=== PATIENT | male | born 1955 | race Caucasian/White ===

== ENCOUNTER 2017-10-19 10:22 | Inpatient (IN) | payer OTHER ==
[2017-10-19] VITALS (11 sets, daily range): BP systolic 122–159; BP diastolic 60–88
[~2017-10-19] VITALS: Ht 175.3 cm; Wt 92.2 kg
[2017-10-19 11:03] LABS: BASOPHIL (%) 0.5 % (0-1); EOSINOPHIL COUNT 0.4 K/uL (0-0.3); HEMATOCRIT 22.2 % (38.0-50.0); HEMOGLOBIN 7.4 G/DL (12.5-16.6); IMMATURE GRANULOCYTE (%) 1.1 % (0.0-0.7); LYMPHOCYTE (%) 16.5 % (15-42); LYMPHOCYTE COUNT 1.4 K/uL (1.0-2.8); MCH 30.6 PG (29.0-34.0); MCHC 33.3 G/DL (30.0-36.0); MCV 91.7 FL (86-99); MONOCYTE (%) 10.2 % (3-12); MONOCYTE COUNT 0.9 K/uL (0-0.8); NEUTROPHIL (%) 66.7 % (45-76); NEUTROPHIL COUNT 5.6 K/uL (1.8-6.4); PLATELET COUNT 267 K/uL (156-360); RBC DIS.WIDTH-CV 14.9 % (11.8-14.6); RBC DIS.WIDTH-SD 50.9 % (39-53); RED BLOOD COUNT 2.42 M/uL (4.00-5.50); WHITE BLOOD COUNT 8.3 K/uL (4.1-10.2)
[2017-10-19 11:10] LABS: CARBON DIOXIDE (BICARBONATE) 19.5 MEQ/L (20-31)
[2017-10-19 11:13] LABS: ALBUMIN 2.7 g/dL (3.2-4.8); CHLORIDE 103 mEq/L (99-109); POTASSIUM 3.9 mEq/L (3.7-5.4); SODIUM 135 mEq/L (136-147)
[2017-10-19 11:15] LABS: GLUCOSE 108 mg/dL (70-99); INTER. NORMALIZED RATIO 1.4; TOTAL PROTEIN 6.6 g/dL (6.4-8.3)
[2017-10-19 11:17] LABS: TOTAL BILIRUBIN 0.4 mg/dL (0.0-1.0)
[2017-10-19 11:18] LABS: PTT 38.7 SEC (25-37)
[2017-10-19 11:19] LABS: ALKALINE PHOSPHATASE 99 IU/L (3-129); CREATININE 4.8 mg/dL (0.6-1.3); GFR ESTIMATE (CALCULATED) 13 mL/min/ (58.99-99999)
[2017-10-19 11:20] LABS: UREA NITROGEN (BUN) 60 mg/dL (9-23)
[2017-10-19 11:21] LABS: AST (GOT) 16 IU/L (2-34)
[2017-10-19 11:22] LABS: ALT (GPT) 14 IU/L (3-49)
[2017-10-19] MEDS ORDERED: ACETAMINOPHEN325 M1 PO (15:23)
[2017-10-19] MEDS ORDERED: ROXICODONE5 MG PO ×2 (15:26→17:54)
[2017-10-19] MEDS ORDERED: APRESOLINE25 MG PO (15:28)
[2017-10-19] MEDS ORDERED: ASPIR 8181 M1 PO (15:31)
[2017-10-19] MEDS ORDERED: LANTUS 10100 UNITS/ SC (15:33)
[2017-10-19] MEDS ORDERED: THERA-M1 EACH PO (15:37)
[2017-10-19] MEDS ORDERED: PROCARDIA XL90 MG PO (16:36)
[2017-10-19] MEDS ORDERED: SENNA8.6 MG PO (16:37)
[2017-10-19] MEDS ORDERED: LASIX40 MG PO (16:39)
[2017-10-19] MEDS ORDERED: COLACE100 MG PO (16:39)
[2017-10-19] MEDS ORDERED: LOPRESSOR25 MG PO (16:41)
[2017-10-19] MEDS ORDERED: PROTONIX40 MG PO (16:42)
[2017-10-19] MEDS ORDERED: ALDACTONE50 MG PO (16:43)
[2017-10-19] MEDS ORDERED: MAGNESIUM400 M1 PO (16:44)
[2017-10-19] MEDS ORDERED: BENADRYL25 MG PO (16:45)
[2017-10-19] MEDS ORDERED: MIRALAX17 GM PO (16:48)
[2017-10-19] MEDS ORDERED: ORAZINC220 MG PO (16:50)
[2017-10-19] MEDS ORDERED: ASCORBIC ACID500 M3 PO (16:51)
[2017-10-19] MEDS ORDERED: KETOCONAZOLE60 GM TP (16:54)
[2017-10-19] MEDS ORDERED: DUONEB 2.5-0.5 M3 ML AEROSOL (16:54)
[2017-10-19] MEDS ORDERED: AQUAPHOR OINTM105 GM TP (16:56)
[2017-10-19 16:57] LABS: APPEARANCE SL.HAZY ((CLEAR)); BILIRUBIN NEGATIVE; BLOOD MODERATE; COLOR YELLOW ((YELLOW)); GLUCOSE (STRIP) NEGATIVE; KETONES NEGATIVE; LEUKOCYTES NEGATIVE; NITRITE NEGATIVE; PROTEIN (STRIP) 100; SPECIFIC GRAVITY 1.011 (1.000-1.030); UROBILINOGEN 0.2 MG/DL (0.2-1.0)
[2017-10-19] MEDS ORDERED: BAZA PROTECT CR57 GM TP (16:58)
[2017-10-19] MEDS ORDERED: SPIRIVA18 MCG IH (16:59)
[2017-10-19] MEDS ORDERED: SYMBICORT60 INHALA1 IH (17:00)
[2017-10-19 17:08] LABS: BACTERIA RARE /HPF; EPITHELIAL CELLS RARE /HPF; MUCUS TRACE /LPF; UCUL ADDED? NO; WHITE BLOOD CELLS 0-5 /HPF (0-5)
[2017-10-19 17:42] LABS: UR CREATININE CONCENTRATION 67.1 MG/DL
[2017-10-19] MEDS ORDERED: CUBICIN RF500 MG IV (17:45)
[2017-10-19] MEDS ORDERED: NIZORAL SHAMPO120 ML TP (18:05)
[2017-10-20 03:22] VITALS: BP 162/79
[2017-10-20 06:17] LABS: HEMATOCRIT 24.8 % (38.0-50.0); HEMOGLOBIN 8.3 G/DL (12.5-16.6); MCH 30.2 PG (29.0-34.0); MCHC 33.5 G/DL (30.0-36.0); MCV 90.2 FL (86-99); PLATELET COUNT 254 K/uL (156-360); RBC DIS.WIDTH-CV 15.9 % (11.8-14.6); RBC DIS.WIDTH-SD 52.1 % (39-53); RED BLOOD COUNT 2.75 M/uL (4.00-5.50); WHITE BLOOD COUNT 7.7 K/uL (4.1-10.2)
[2017-10-20 06:46] LABS: ALBUMIN 2.4 G/DL (3.2-4.8); CHLORIDE 106 MEQ/L (99-109); CREATININE 4.8 MG/DL (0.6-1.3); GFR ESTIMATE (CALCULATED) 13 mL/min/ (58.99-99999); IRON 41 MCG/DL (35-150); PHOSPHORUS 5.6 mg/dL (2.5-4.9); POTASSIUM 3.7 MEQ/L (3.7-5.4); SODIUM 137 MEQ/L (136-147); TRANSFERRIN SATUR. 33 % (20-55); UREA NITROGEN (BUN) 58 mg/dL (9-23)
[2017-10-20 06:49] LABS: GLUCOSE 72 mg/dL (70-99)
[2017-10-20 07:01] LABS: URIC ACID 9.3 mg/dL (3.1-9.2)
[2017-10-20 08:19] VITALS: BP 176/89
[2017-10-20 12:20] VITALS: BP 173/85
[2017-10-20 15:45] VITALS: BP 173/83
[2017-10-20 19:25] VITALS: BP 158/76
[2017-10-21] VITALS (7 sets, daily range): BP systolic 146–171; BP diastolic 70–87
[2017-10-21 05:52] LABS: HEMATOCRIT 22.2 % (38.0-50.0); HEMOGLOBIN 7.5 G/DL (12.5-16.6); MCH 30.1 PG (29.0-34.0); MCHC 33.8 G/DL (30.0-36.0); MCV 89.2 FL (86-99); PLATELET COUNT 242 K/uL (156-360); RBC DIS.WIDTH-CV 15.6 % (11.8-14.6); RBC DIS.WIDTH-SD 51.2 % (39-53); RED BLOOD COUNT 2.49 M/uL (4.00-5.50); WHITE BLOOD COUNT 6.6 K/uL (4.1-10.2)
[2017-10-21 06:20] LABS: ALBUMIN 2.2 G/DL (3.2-4.8); CHLORIDE 104 MEQ/L (99-109); CREATININE 4.1 MG/DL (0.6-1.3); GFR ESTIMATE (CALCULATED) 16 mL/min/ (58.99-99999); GLUCOSE 127 mg/dL (70-99); PHOSPHORUS 4.9 mg/dL (2.5-4.9); POTASSIUM 3.4 MEQ/L (3.7-5.4); SODIUM 135 MEQ/L (136-147); UREA NITROGEN (BUN) 52 mg/dL (9-23)
[2017-10-21 11:52] LABS: HEMATOCRIT 23.2 % (38.0-50.0); HEMOGLOBIN 7.8 G/DL (12.5-16.6); MCV 89.2 FL (86-99)
[2017-10-21 18:00] LABS: HEMATOCRIT 25.3 % (38.0-50.0); HEMOGLOBIN 8.5 G/DL (12.5-16.6); MCV 89.1 FL (86-99)
[2017-10-22 00:28] VITALS: BP 147/73
[2017-10-22 00:38] LABS: HEMATOCRIT 23.4 % (38.0-50.0); MCV 89.3 FL (86-99)
[2017-10-22 04:00] VITALS: BP 137/72
[2017-10-22 06:25] LABS: HEMATOCRIT 22.9 % (38.0-50.0); HEMOGLOBIN 7.7 G/DL (12.5-16.6); MCH 30.3 PG (29.0-34.0); MCHC 33.6 G/DL (30.0-36.0); MCV 90.2 FL (86-99); PLATELET COUNT 261 K/uL (156-360); RBC DIS.WIDTH-CV 15.4 % (11.8-14.6); RBC DIS.WIDTH-SD 50.4 % (39-53); RED BLOOD COUNT 2.54 M/uL (4.00-5.50); WHITE BLOOD COUNT 7.2 K/uL (4.1-10.2)
[2017-10-22 06:58] LABS: ALBUMIN 2.3 G/DL (3.2-4.8); CHLORIDE 104 MEQ/L (99-109); CREATININE 3.8 MG/DL (0.6-1.3); GFR ESTIMATE (CALCULATED) 17 mL/min/ (58.99-99999); GLUCOSE 96 mg/dL (70-99); PHOSPHORUS 4.2 mg/dL (2.5-4.9); POTASSIUM 3.8 MEQ/L (3.7-5.4); SODIUM 136 MEQ/L (136-147); UREA NITROGEN (BUN) 50 mg/dL (9-23)
[2017-10-22 08:03] VITALS: BP 124/78
[2017-10-22 16:00] VITALS: BP 166/78
[2017-10-22 20:00] VITALS: BP 170/80
[2017-10-22 23:54] VITALS: BP 138/64
[2017-10-23 04:00] VITALS: BP 117/67; BP 156/82
[2017-10-23 06:56] LABS: HEMATOCRIT 24.3 % (38.0-50.0); HEMOGLOBIN 8.1 G/DL (12.5-16.6); MCH 30.3 PG (29.0-34.0); MCHC 33.3 G/DL (30.0-36.0); PLATELET COUNT 262 K/uL (156-360); RBC DIS.WIDTH-CV 15.3 % (11.8-14.6); RBC DIS.WIDTH-SD 50.9 % (39-53); RED BLOOD COUNT 2.67 M/uL (4.00-5.50); WHITE BLOOD COUNT 9.2 K/uL (4.1-10.2)
[2017-10-23 07:08] VITALS: BP 156/74
[2017-10-23 07:40] LABS: ALBUMIN 2.3 G/DL (3.2-4.8); CHLORIDE 99 MEQ/L (99-109); CREATINE KINASE 21 IU/L (1-294); GFR ESTIMATE (CALCULATED) 27 mL/min/ (58.99-99999); GLUCOSE 95 mg/dL (70-99); PHOSPHORUS 3.4 mg/dL (2.5-4.9); POTASSIUM 3.4 MEQ/L (3.7-5.4); SODIUM 135 MEQ/L (136-147); UREA NITROGEN (BUN) 39 mg/dL (9-23)
[2017-10-23 07:41] LABS: CREATININE 2.6 MG/DL (0.6-1.3)
[2017-10-23 11:03] VITALS: BP 183/80
[2017-10-23 15:13] VITALS: BP 167/79
[2017-10-23 19:30] VITALS: BP 164/79
[2017-10-24] VITALS: BP 162/84
[2017-10-24 04:00] VITALS: BP 159/80
[2017-10-24 06:12] LABS: BASOPHIL (%) 0.9 % (0-1); BASOPHIL COUNT 0.1 K/uL (0-0.1); EOSINOPHIL (%) 5.2 % (0-5); EOSINOPHIL COUNT 0.5 K/uL (0-0.3); HEMATOCRIT 25.9 % (38.0-50.0); HEMOGLOBIN 8.3 G/DL (12.5-16.6); IMMATURE GRANULOCYTE (%) 1.2 % (0.0-0.7); LYMPHOCYTE (%) 26.3 % (15-42); LYMPHOCYTE COUNT 2.3 K/uL (1.0-2.8); MCV 90.6 FL (86-99); MONOCYTE COUNT 1.2 K/uL (0-0.8); NEUTROPHIL (%) 52.4 % (45-76); NEUTROPHIL COUNT 4.5 K/uL (1.8-6.4); PLATELET COUNT 324 K/uL (156-360); RBC DIS.WIDTH-CV 15.1 % (11.8-14.6); RBC DIS.WIDTH-SD 50.2 % (39-53); RED BLOOD COUNT 2.86 M/uL (4.00-5.50); WHITE BLOOD COUNT 8.7 K/uL (4.1-10.2)
[2017-10-24 06:41] LABS: ALBUMIN 2.5 G/DL (3.2-4.8); CHLORIDE 103 MEQ/L (99-109); CREATININE 2.4 MG/DL (0.6-1.3); GFR ESTIMATE (CALCULATED) 29 mL/min/ (58.99-99999); GLUCOSE 70 mg/dL (70-99); PHOSPHORUS 3.8 mg/dL (2.5-4.9); SODIUM 136 MEQ/L (136-147); UREA NITROGEN (BUN) 37 mg/dL (9-23)
[2017-10-24 07:14] VITALS: BP 135/71
[2017-10-24 11:11] VITALS: BP 143/77
[2017-10-24] MEDS ORDERED: APRESOLINE25 MG PO (14:44)
[2017-10-24] MEDS ORDERED: PROCARDIA XL90 MG PO (14:44)
[2017-10-24] MEDS ORDERED: PROTONIX40 MG PO (14:44)
[2017-10-24] MEDS ORDERED: LANTUS 10100 UNITS/ SC (14:44)
[2017-10-24] MEDS ORDERED: MAGNESIUM400 M1 PO (14:44)
[2017-10-24] MEDS ORDERED: LOPRESSOR25 MG PO (14:44)
[2017-10-24] MEDS ORDERED: ROXICODONE5 MG PO (14:44)
[2017-10-24 15:08] VITALS: BP 162/83
== END 2017-10-24 17:43 | disposition home health service (06) | DRG 682 ==
LOC: EME 10:22 → 5SOUTH 14:19 → EDOF 14:19 → ENRESERV 14:20 → EDOF 14:40 → ENRESERV 15:17 → 5SOUTH 16:13
PROVIDERS: Emergency Medicine; Hospitalist; Internal Medicine; Internal Medicine Nephrology; Student in an Organized Health Care Education/Training Program
PROC: 30233N1 Transfusion of Nonautologous Red Blood Cells into Peripheral Vein, Percutaneous Approach (ICD-10-PCS; principal; 2017-10-19)
DX: N17.9 Acute kidney failure, unspecified (principal); E87.2 Acidosis; D62 Acute posthemorrhagic anemia; R33.9 Retention of urine, unspecified; I82.613 Acute embolism and thrombosis of superficial veins of upper extremity, bilateral; T82.7XXA Infection and inflammatory reaction due to other cardiac and vascular devices, implants and grafts, initial encounter; R78.81 Bacteremia; B95.62 Methicillin resistant Staphylococcus aureus infection as the cause of diseases classified elsewhere; M46.20 Osteomyelitis of vertebra, site unspecified; M46.44 Discitis, unspecified, thoracic region; G06.2 Extradural and subdural abscess, unspecified; M00.9 Pyogenic arthritis, unspecified; L89.610 Pressure ulcer of right heel, unstageable; L89.890 Pressure ulcer of other site, unstageable; I12.9 Hypertensive chronic kidney disease with stage 1 through stage 4 chronic kidney disease, or unspecified chronic kidney disease; E11.22 Type 2 diabetes mellitus with diabetic chronic kidney disease; N18.9 Chronic kidney disease, unspecified; E11.51 Type 2 diabetes mellitus with diabetic peripheral angiopathy without gangrene; J44.9 Chronic obstructive pulmonary disease, unspecified; I25.10 Atherosclerotic heart disease of native coronary artery without angina pectoris; K21.9 Gastro-esophageal reflux disease without esophagitis; E66.9 Obesity, unspecified; E78.5 Hyperlipidemia, unspecified; Z95.5 Presence of coronary angioplasty implant and graft; Z87.891 Personal history of nicotine dependence; Q60.0 Renal agenesis, unilateral; Z68.30 Body mass index [BMI] 30.0-30.9, adult; Z89.421 Acquired absence of other right toe(s); Z86.718 Personal history of other venous thrombosis and embolism
CPT/HCPCS: 71045; 76770; 80048; 80053; 80069; 81003; 82436; 82550; 82570; 82803; 82948; 83540; 84156; 84300; 84466; 84550; 85014; 85018; 85025; 85027; 85610; 85730; 86850; 86900; 86901; 86920; 87040; 93970; 99202; 99281; 99285; A6260; C1755; J0878; J0881; J1644; J1815; J2270; J2997; J7030; J7040; J7050; P9016